=== PATIENT | female | born 1990 | race Caucasian/White ===

== ENCOUNTER 2018-03-06 15:46 | Outpatient (CLI) | payer OTHER ==
[2018-03-06] MEDS: LACTATED RINGER'S 1,000 ML IV (17:31)
[2018-03-06] MEDS ORDERED: LACTATED RINGER'S 1,000 ML IV (18:30)
== END 2018-03-06 21:42 | disposition home or self-care (01) ==
LOC: OBT 15:46 → L-D 15:47 → OBT 21:42
DX: O76 Abnormality in fetal heart rate and rhythm complicating labor and delivery (principal); Z3A.39 39 weeks gestation of pregnancy
CPT/HCPCS: 36415; 76815; 76818; 96360; 96361

== ENCOUNTER 2018-03-10 07:52 | Inpatient (IN) | payer OTHER ==
[2018-03-10] MEDS ORDERED: METHYLERGONOVINE 0.2 MG INJ IM (10:00)
[2018-03-10] MEDS ORDERED: OXYTOCIN 30 UNITS/LR 500 ML IV ×2 (10:00)
[2018-03-10] MEDS ORDERED: BUTORPHANOL 1 MG INJ IV (10:00)
[2018-03-10] MEDS ORDERED: CARBOPROST 250 MCG INJ IM (10:00)
[2018-03-10] MEDS ORDERED: MISOPROSTOL 200 MCG TAB PR (10:00)
[2018-03-10 11:39] LABS: ADD MAN DIFF? NO
[2018-03-10 11:42] LABS: BASOPHILS % 0.2 % (0.0-2.0); EOSINOPHILS # 0.2 10^3/ul (0.0-0.5); HEMATOCRIT 33.2 % (37.0-47.0); HEMOGLOBIN 10.9 g/dl (12.0-16.0); LYMPHOCYTES # 1.5 10^3/ul (0.8-2.9); LYMPHOCYTES % 14.8 % (15.0-51.0); MEAN CORPUSCULAR HEMOGLOBIN 29.7 pg (29.0-33.0); MEAN CORPUSCULAR HGB CONC 32.8 g/dl (32.0-37.0); MEAN CORPUSCULAR VOLUME 90.5 fl (82.0-101.0); MEAN PLATELET VOLUME 11.1 fl (7.4-10.4); MONOCYTE # 0.6 10^3/ul (0.3-0.9); MONOCYTES % 6.5 % (0.0-11.0); NEUTROPHIL # 7.5 10^3/ul (1.6-7.5); NEUTROPHILS % 76.2 % (39.0-77.0); PLATELET COUNT 194 10^3/UL (140-415); RED BLOOD COUNT 3.67 10^6/ul (4.20-5.40); RED CELL DISTRIBUTION WIDTH 13.3 % (11.5-14.5)
[2018-03-10 11:42] LABS: WHITE BLOOD COUNT 9.9 10^3/ul (4.8-10.8)
[2018-03-10] MEDS: LACTATED RINGER'S 1,000 ML IV ×4 (11:52→21:59)
[2018-03-10] MEDS: OXYTOCIN 30 UNITS/LR 500 ML IV (11:58)
[2018-03-10 12:03] LABS: INR 0.92; PROTIME 12.4 Sec (11.9-14.9)
[2018-03-10 12:04] LABS: PARTIAL THROMBOPLASTIN TIME 27.6 Sec (25.0-35.0)
[2018-03-10 12:49] LABS: AMPHETAMINE/METHAMPHETAMINE Negative (NEGATIVE); BARBITURATES Negative (NEGATIVE); BENZODIAZEPINES Negative (NEGATIVE); CANNABINOIDS Negative (NEGATIVE); COCAINE Negative (NEGATIVE); OPIATES Negative (NEGATIVE)
[2018-03-10 14:38] LABS: HEPATITIS B SURFACE ANTIGEN NEGATIVE (NEGATIVE)
[2018-03-10 15:02] LABS: RAPID PLASMA REAGIN NONREACTIVE (NR)
[2018-03-10] MEDS: ACETAMINOPHEN 500 MG TAB PO (21:26)
[2018-03-11] MEDS ORDERED: MINERAL OIL LIGHT 10 ML VIAL TOP (02:30)
[2018-03-11] MEDS: LACTATED RINGER'S 1,000 ML IV ×3 (10:46→18:37)
[2018-03-11] MEDS: DINOPROSTONE 10 MG VAG SUPP VAG (13:20)
[2018-03-11] MEDS: BUTORPHANOL 2 MG INJ IV (14:32)
[2018-03-12] MEDS: LACTATED RINGER'S 1,000 ML IV ×5 (02:27→22:06)
[2018-03-12] MEDS: DINOPROSTONE 10 MG VAG SUPP VAG (10:39)
[2018-03-12] MEDS ORDERED: FENTAnyl 2MCG/ML-ROPIV 0.2% 100 ML (16:21)
[2018-03-12] MEDS: OXYTOCIN 30 UNITS/LR 500 ML IV (18:01)
[2018-03-12] MEDS ORDERED: NALOXONE (0.4 MG/ML) INJ IV (21:30)
[2018-03-12] MEDS: FENTAnyl 2MCG/ML-ROPIV 0.2% 100 ML BAG EPI (22:58)
[2018-03-13] MEDS: LACTATED RINGER'S 1,000 ML IV (06:12)
[2018-03-13] MEDS: FENTAnyl 2MCG/ML-ROPIV 0.2% 100 ML BAG EPI (07:26)
[2018-03-13] MEDS: MINERAL OIL LIGHT 10 ML VIAL TOP (10:30)
[2018-03-13] MEDS: OXYTOCIN 30 UNITS/LR 500 ML IV (11:18)
[2018-03-13] MEDS: BUTORPHANOL 2 MG INJ IV (11:19)
[2018-03-13] MEDS: LIDOCAINE 1% (MPF) 30 ML INJ INJ (11:22)
[2018-03-13] MEDS ORDERED: MISOPROSTOL 200 MCG TAB PR (13:00)
[2018-03-13] MEDS ORDERED: OXYTOCIN 30 UNITS/LR 500 ML IV (13:00)
[2018-03-13] MEDS ORDERED: METHYLERGONOVINE 0.2 MG INJ IM (13:00)
[2018-03-13] MEDS ORDERED: OXYCODONE/ASPIRIN (4.88/325) TAB PO ×2 (13:00)
[2018-03-13] MEDS ORDERED: ZOLPIDEM 5 MG TAB PO (13:00)
[2018-03-13] MEDS: WITCH HAZEL/GLYCERIN PAD PR (13:51)
[2018-03-13] MEDS: BENZOCAINE 20% 56 ML SPRAY TOP (13:51)
[2018-03-13] MEDS: LANOLIN 7 GM TUBE TOP (13:52)
[2018-03-13] MEDS: CARBOPROST 250 MCG INJ IM (18:07)
[2018-03-13] MEDS: IBUPROFEN 600 MG TAB PO (18:40)
[2018-03-13] MEDS: SENNA/DOCUSATE NA (8.6MG/50MG) TAB PO (21:17)
[2018-03-14] MEDS: IBUPROFEN 600 MG TAB PO ×5 (01:00→23:31)
[2018-03-14 09:08] LABS: ADD MAN DIFF? NO
[2018-03-14 09:12] LABS: WHITE BLOOD COUNT 15.6 10^3/ul (4.8-10.8)
[2018-03-14 09:13] LABS: BASOPHILS % 0.1 % (0.0-2.0); EOSINOPHILS # 0.2 10^3/ul (0.0-0.5); EOSINOPHILS % 1.2 % (0.0-7.0); HEMATOCRIT 27.7 % (37.0-47.0); LYMPHOCYTES # 1.7 10^3/ul (0.8-2.9); MEAN CORPUSCULAR HEMOGLOBIN 29.7 pg (29.0-33.0); MEAN CORPUSCULAR HGB CONC 32.5 g/dl (32.0-37.0); MEAN CORPUSCULAR VOLUME 91.4 fl (82.0-101.0); MONOCYTE # 0.8 10^3/ul (0.3-0.9); MONOCYTES % 4.8 % (0.0-11.0); NEUTROPHIL # 12.8 10^3/ul (1.6-7.5); NEUTROPHILS % 82.3 % (39.0-77.0); PLATELET COUNT 169 10^3/UL (140-415); RED BLOOD COUNT 3.03 10^6/ul (4.20-5.40); RED CELL DISTRIBUTION WIDTH 13.8 % (11.5-14.5)
[2018-03-14] MEDS: SENNA/DOCUSATE NA (8.6MG/50MG) TAB PO ×2 (09:59→21:08)
[2018-03-14] MEDS: MAGNESIUM HYDROXIDE 30ML CUP PO (21:08)
[2018-03-15] MEDS: IBUPROFEN 600 MG TAB PO ×2 (05:44→12:26)
[2018-03-15] MEDS: DIPHTH/TET/ACEL PERTUSS (ADULT) 0.5 ML VIAL IM* (09:07)
[2018-03-15] MEDS: LACTATED RINGER'S 1,000 ML IV ×2 (09:08→09:09)
[2018-03-15] MEDS: SENNA/DOCUSATE NA (8.6MG/50MG) TAB PO (09:09)
[2018-03-15] MEDS: MAGNESIUM HYDROXIDE 30ML CUP PO (09:10)
[2018-03-15 12:05] LABS: ADD MAN DIFF? NO
[2018-03-15 12:17] LABS: BASOPHILS % 0.2 % (0.0-2.0); EOSINOPHILS # 0.2 10^3/ul (0.0-0.5); EOSINOPHILS % 1.7 % (0.0-7.0); HEMATOCRIT 25.5 % (37.0-47.0); HEMOGLOBIN 8.3 g/dl (12.0-16.0); LYMPHOCYTES # 1.3 10^3/ul (0.8-2.9); LYMPHOCYTES % 12.1 % (15.0-51.0); MEAN CORPUSCULAR HEMOGLOBIN 30.2 pg (29.0-33.0); MEAN CORPUSCULAR HGB CONC 32.5 g/dl (32.0-37.0); MEAN CORPUSCULAR VOLUME 92.7 fl (82.0-101.0); MEAN PLATELET VOLUME 11.4 fl (7.4-10.4); MONOCYTE # 0.6 10^3/ul (0.3-0.9); MONOCYTES % 5.2 % (0.0-11.0); NEUTROPHIL # 8.5 10^3/ul (1.6-7.5); NEUTROPHILS % 80.2 % (39.0-77.0); PLATELET COUNT 158 10^3/UL (140-415); RED BLOOD COUNT 2.75 10^6/ul (4.20-5.40); RED CELL DISTRIBUTION WIDTH 13.7 % (11.5-14.5)
[2018-03-15 12:17] LABS: WHITE BLOOD COUNT 10.6 10^3/ul (4.8-10.8)
== END 2018-03-15 16:15 | disposition home or self-care (01) | DRG 775 ==
LOC: OBT 07:52 → PP1 03-13 12:40 → L-D 07:53 → OBT 10:18 → L-D 09:40
PROVIDERS: Obstetrics & Gynecology
PROC: 10E0XZZ Delivery of Products of Conception, External Approach (ICD-10-PCS; principal; 2018-03-13)
PROC: 0HQ9XZZ Repair Perineum Skin, External Approach (ICD-10-PCS; 2018-03-13)
PROC: 0W8NXZZ Division of Female Perineum, External Approach (ICD-10-PCS; 2018-03-13)
DX: O69.81X0 Labor and delivery complicated by cord around neck, without compression, not applicable or unspecified (principal); O70.9 Perineal laceration during delivery, unspecified; Z37.0 Single live birth; Z3A.40 40 weeks gestation of pregnancy
CPT/HCPCS: 62319; 76815; 76818; 80307; 85025; 85610; 85730; 86592; 86850; 86900; 86901; 87340

== ENCOUNTER 2018-04-22 22:18 | Emergency (ER) | payer MEDICAID, OTHER ==
[2018-04-22] MEDS: ONDANSETRON 4 MG INJ IV (22:55)
[2018-04-22] MEDS: morphine 4 MG/ML VIAL IV (22:55)
[2018-04-22] MEDS: SOD CHLORIDE 0.9% 1,000 ML IV (22:55)
[2018-04-22] MEDS: HYDROmorphONE 2 MG/ML SYG IV (23:14)
[2018-04-22 23:48] LABS: ADD MAN DIFF? NO
[2018-04-22 23:49] LABS: BASOPHILS % 0.3 % (0.0-2.0); EOSINOPHILS # 0.3 10^3/ul (0.0-0.5); EOSINOPHILS % 2.2 % (0.0-7.0); HEMATOCRIT 36.8 % (37.0-47.0); HEMOGLOBIN 11.7 g/dl (12.0-16.0); LYMPHOCYTES # 3.3 10^3/ul (0.8-2.9); LYMPHOCYTES % 29.3 % (15.0-51.0); MEAN CORPUSCULAR HEMOGLOBIN 28.6 pg (29.0-33.0); MEAN CORPUSCULAR HGB CONC 31.8 g/dl (32.0-37.0); MEAN PLATELET VOLUME 11.4 fl (7.4-10.4); MONOCYTE # 0.8 10^3/ul (0.3-0.9); NEUTROPHIL # 6.9 10^3/ul (1.6-7.5); NEUTROPHILS % 60.8 % (39.0-77.0); PLATELET COUNT 244 10^3/UL (140-415); RED BLOOD COUNT 4.09 10^6/ul (4.20-5.40); RED CELL DISTRIBUTION WIDTH 11.8 % (11.5-14.5)
[2018-04-22 23:49] LABS: WHITE BLOOD COUNT 11.3 10^3/ul (4.8-10.8)
[2018-04-23 00:11] LABS: ALANINE AMINOTRANSFERASE 39 IU/L (13-69); ALBUMIN 4.3 g/dl (3.3-4.9); ALKALINE PHOSPHATASE 76 IU/L (42-121); ANION GAP 11 (8-16); ASPARTATE AMINO TRANSFERASE 28 IU/L (15-46); BILIRUBIN,INDIRECT 0.1 mg/dl (0-1.1); BILIRUBIN,TOTAL 0.1 mg/dl (0.2-1.3); BLOOD UREA NITROGEN 13 mg/dl (7-20); CALCIUM 9.5 mg/dl (8.4-10.2); CARBON DIOXIDE 28 mmol/L (21-31); CHLORIDE 106 mmol/L (97-110); CREATININE 0.77 mg/dl (0.44-1.00); GLUCOSE 100 mg/dl (70-220); LIPASE 93 U/L (23-300); POTASSIUM 3.4 mmol/L (3.5-5.1); SODIUM 142 mmol/L (135-144); TOTAL PROTEIN 7.6 g/dl (6.1-8.1)
[2018-04-23 00:14] LABS: URINE BLOOD (Dip) POC 3+ (NEGATIVE); URINE GLUCOSE (Dip) POC Negative (NEGATIVE); URINE KETONES (Dip) POC Negative (NEGATIVE); URINE LEUKOCYTE EST (Dip) POC 1+ (NEGATIVE); URINE NITRITE (Dip) POC Negative (NEGATIVE); URINE TOTAL PROTEIN POC 1+ (NEGATIVE)
[2018-04-23 00:14] LABS: URINE PH (Dip) POC 6.5 (5.0-8.5)
[2018-04-23] MEDS: KETOROLAC 30 MG INJ IV (01:51)
[2018-04-23 02:29] LABS: ADD UMIC YES; UR ASCORBIC ACID NEGATIVE (NEGATIVE); UR BACTERIA FEW /HPF (NONE SEEN); UR BILIRUBIN (Dip) NEGATIVE (NEGATIVE); UR BLOOD (Dip) 3+ mg/dL (NEGATIVE); UR CLARITY CLOUDY (CLEAR); UR COLOR YELLOW (YELLOW); UR GLUCOSE (Dip) NEGATIVE (NEGATIVE); UR KETONES (Dip) NEGATIVE (NEGATIVE); UR LEUKOCYTE ESTERASE (Dip) 3+ Leu/ul (NEGATIVE); UR MUCUS FEW /HPF (NONE SEEN); UR NITRITE (Dip) NEGATIVE (NEGATIVE); UR RBC 93 /HPF (0-5); UR SPECIFIC GRAVITY (Dip) 1.021 (1.003-1.030); UR SQUAMOUS EPITHELIAL CELL MODERATE /HPF (FEW); UR TOTAL PROTEIN (Dip) NEGATIVE (NEGATIVE); UR TRANSITIONAL EPI CELL FEW /HPF (NONE SEEN); UR URIC ACID CRYSTAL FEW /HPF (NONE SEEN); UR UROBILINOGEN (Dip) NEGATIVE (NEGATIVE); UR WBC 46 /HPF (0-5)
== END 2018-04-23 02:22 | disposition home or self-care (01) ==
LOC: FTE 22:18
DX: N23 Unspecified renal colic (principal)
CPT/HCPCS: 36415; 74176; 80053; 81001; 81003; 81025; 83690; 85025; 96361; 96374; 96375; 99285-25